=== PATIENT | female | born 1960 | race Caucasian/White ===

== ENCOUNTER 2019-06-23 09:35 | Day surgery (SDC) | payer MEDICAID ==
[2019-06-23] VITALS (12 sets, daily range): BP systolic 131–148; BP diastolic 55–90
[~2019-06-23] VITALS: Ht 160 cm; Wt 66.5 kg
[~2019-06-23 09:35] MED LIST: DOCU100C40 PO; HYDR-4353 PO; IBUP-1985 PO; MORP30TA PO; OMEP20CA4 PO
[2019-06-23] MEDS ORDERED: LORazepam 0.5 MG tablet PO PRN (09:55)
[2019-06-23] MEDS ORDERED: insulin Lispro (HumaLOG) vial - multi-dose SQ SCH (09:55)
[2019-06-23] MEDS ORDERED: glucagon, human recombinant 1mg kit SUBCUT PRN (09:55)
[2019-06-23] MEDS ORDERED: diphenhydrAMINE 25mg capsule PO PRN (09:55)
[2019-06-23] MEDS ORDERED: dextrose 50%-water 50ml dispensing syringe IV PRN ×2 (09:55)
[2019-06-23] MEDS ORDERED: nitroGLYCERIN 0.4mg SUBLingual tab SL PRN (09:55)
[2019-06-23] MEDS ORDERED: dextrose ORAL solution 15 GM/59 ML bottle PO PRN ×2 (09:55)
[2019-06-23] MEDS ORDERED: HYDROcodone/acetaminophen 10/325mg tab PO PRN ×2 (09:55→13:40)
[2019-06-23] MEDS ORDERED: normal saline 1,000 ML IV SCH (09:55)
[2019-06-23] MEDS ORDERED: MESSAGE TO PHARMACY PO ONE (09:55)
[2019-06-23] MEDS ORDERED: NO HOME MEDS (11:09)
[2019-06-23] MEDS ORDERED: ASPI-1265 PO (11:36)
[2019-06-23] MEDS ORDERED: fentaNYL/PF 50MCG/1 ML 2ML syringe ONE (12:26)
[2019-06-23] MEDS ORDERED: iohexol 350 MG/ML 50ML vial IV ONE (12:26)
[2019-06-23] MEDS ORDERED: LIDOcaine 1% (10mg/ml)w/preservative injection 20ml MDV ONE (12:26)
[2019-06-23] MEDS ORDERED: midazolam 2 mg/2 ml injection ONE (12:26)
[2019-06-23] MEDS ORDERED: iohexol 350MG/ML 100ml bottle IV ONE (12:26)
[2019-06-23] MEDS ORDERED: proCHLORperazine 10 MG/2 ml inj IV PRN (13:40)
[2019-06-23] MEDS ORDERED: HYDROcodone/acetaminophen 5mg/325mg tablet PO PRN (13:40)
[2019-06-23] MEDS ORDERED: ondansetron/PF 4mg/2ml inj IV PRN (13:40)
[2019-06-23] MEDS ORDERED: OXAZEpam 15mg capsule PO PRN (13:40)
[2019-06-23] MEDS ORDERED: insulin glargine (Lantus) pen - multi-dose SQ SCH (21:00)
== END 2019-06-23 19:30 | disposition home or self-care (01) ==
LOC: SSTAY O 09:35
PROVIDERS: ATTEND Internal Medicine Cardiovascular Disease
DX: I25.10 Atherosclerotic heart disease of native coronary artery without angina pectoris (principal); R94.30 Abnormal result of cardiovascular function study, unspecified; R06.02 Shortness of breath; E11.9 Type 2 diabetes mellitus without complications; R07.9 Chest pain, unspecified; R91.8 Other nonspecific abnormal finding of lung field; I34.1 Nonrheumatic mitral (valve) prolapse; F12.10 Cannabis abuse, uncomplicated
CPT/HCPCS: 71250; 82948; 93005; 93458; C1769; J1644; J2001; J2250; J2405; J3010; J7030; Q0163; Q9967; 99152; A4620; A6258; C1760